=== PATIENT | female | born 1960 | race Caucasian/White ===

== ENCOUNTER 2017-05-05 19:34 | Emergency (ER) | payer BC, OTHER ==
[~2017-05-05] VITALS: Ht 157.5 cm; Wt 72.6 kg
[2017-05-05 19:35] VITALS: BP_SYST 194
[2017-05-05] MEDS ORDERED: HYDROcodone/ACETAMIN 5-325 MG TAB (NORCO/ VICODIN) PO ONE (21:00)
[2017-05-05 22:47] VITALS: BP_SYST 148
== END 2017-05-05 22:43 | disposition home or self-care (01) ==
LOC: SED 19:34
DX: S02.2XXA Fracture of nasal bones, initial encounter for closed fracture (principal); S00.83XA Contusion of other part of head, initial encounter; E78.00 Pure hypercholesterolemia, unspecified; K21.9 Gastro-esophageal reflux disease without esophagitis; Z88.2 Allergy status to sulfonamides; W01.10XA Fall on same level from slipping, tripping and stumbling with subsequent striking against unspecified object, initial encounter; Y93.89 Activity, other specified; Y92.511 Restaurant or cafe as the place of occurrence of the external cause; Y99.8 Other external cause status
CPT/HCPCS: 70450-TC; 70486-TC; 99283; 99284